=== PATIENT | male | born 1975 | race Native Hawaiian/Other Pacific Islander ===

== ENCOUNTER 2017-03-15 08:45 | Emergency (ER) | payer OTHER ==
[2017-03-15 08:53] VITALS: BMI 24.2
[2017-03-15 08:56] VITALS: BP 142/93; PULSE 90; RESP 19; TEMP 98.5; O2SAT 98
--- NOTE | 2017-03-15 09:29 | ED PDOC ---
Lower Extremity Pain/Injury Time Seen by Provider: 03/15/17 09:19 Chief Complaint (Nursing): Lower Extremity Problem/Injury Chief Complaint (Provider): Laceration History Per: Patient History/Exam Limitations: no limitations Onset/Duration Of Symptoms: Days (Today) Current Symptoms Are (Timing): Still Present Additional Complaint(s): Pt. was walking and a wooden ornament cut his leg open. No numbness, tingles, weakness. Has pain to the laceration site. No calf pain. Walking with no issues. Tetnus utd. Past Medical History Reviewed: Nursing Documentation, Vital Signs Vital Signs: Last Vital Signs Temp 98.5 F 03/15/17 08:53 Pulse 90 03/15/17 08:53 Resp 19 03/15/17 08:53 BP 142/93 H 03/15/17 08:53 Pulse Ox 98 03/15/17 08:59 - Medical History PMH: No Chronic Diseases - Surgical History Surgical History: No Surg Hx - Family History Family History: States: Unknown Family Hx - Home Medications Home Medications: Ambulatory Orders Medication Instructions Recorded Ibuprofen [Motrin] 600 mg PO TID 7 Days 03/15/17 - Allergies Allergies/Adverse Reactions: Allergies Allergy/AdvReac Type Severity Reaction Status Date / Time No Known Allergies Allergy Verified 03/15/17 09:26 Review of Systems Constitutional: Negative for: Weakness Cardiovascular: Negative for: Chest Pain Respiratory: Negative for: Cough, Shortness of Breath Musculoskeletal: Positive for: Leg Pain. Negative for: Neck Pain, Shoulder Pain , Arm Pain, Back Pain, Hand Pain Skin: Negative for: Rash Neurological: Negative for: Weakness, Numbness Physical Exam - Reviewed Nursing Documentation Reviewed: Yes Vital Signs Reviewed: Yes - Physical Exam Appears: Positive for: Well, Non-toxic, No Acute Distress Head Exam: Positive for: ATRAUMATIC, NORMAL INSPECTION, NORMOCEPHALIC Neck: Positive for: Normal, Painless ROM, Supple Cardiovascular/Chest: Positive for: Regular Rate, Rhythm Respiratory: Positive for: CNT, Normal Breath Sounds Pulses-Dorsalis Pedis (R): 2+ Back: Positive for: Normal Inspection. Negative for: L CVA Tenderness, R CVA Tenderness Extremity: Positive for: Normal ROM, Tenderness (R penaloza mid with laceration vertical, linear; no bone deformity; 3cm length.). Negative for: Pedal Edema, Calf Tenderness Neurologic/Psych: Positive for: Alert, Oriented - ECG O2 Sat by Pulse Oximetry: 98 - Progress ED Course And Treament: 1053: Stable. AAOx3. Pain free. Ambulated with no issues. Fu with pcp. Procedures - Laceration/Wound Repair leg Wound Length (cm): 3 Wound's Depth, Shape: superficial, linear Wound Explored: no foreign body removed Irrigated w/ Saline (ccs): 350 Betadine Prep?: Yes Anesthesia: Lidocaine w/ Epi (2%) Volume Anesthetic (ccs): 2 Wound Repaired With: Sutures Suture Size/Type: 3:0, proline Number of Sutures: 8 Layer Closure?: No Wound Complexity: Simple Sterile Dressing Applied?: Yes Progress: Tolerated procedure with no issues. Aware of scarring. Aware of wound care. Disposition - Clinical Impression Clinical Impression: Laceration - Patient ED Disposition Is Patient to be Admitted: No Counseled Patient/Family Regarding: Diagnosis, Need For Followup, Rx Given - Disposition Referrals: [facility] [Outside] - 03/16/17 Disposition: Routine/Home Disposition Time: 10:56 Condition: STABLE Additional Instructions: Return in 7 days or see your doctor in 7 days for suture removal. Prescriptions: Ibuprofen [Motrin] 600 mg PO TID 7 Days Instructions: Laceration (ED), Care For Your Stitches (ED)
[2017-03-15] MEDS ORDERED: Lidocaine 2% w Epi 1:100,000 Inj IJ ONE (09:39)
[2017-03-15] MEDS ORDERED: Lidocaine/Epi 1% 1:100000 20 ML IJ ONE (09:39)
[2017-03-15] MEDS ORDERED: Povidone Iodine Topical 10% Sol ONE (09:41)
== END 2017-03-15 11:24 | disposition home or self-care (01) ==
LOC: H.ER 08:45
DX: S81.811A Laceration without foreign body, right lower leg, initial encounter (principal); W22.8XXA Striking against or struck by other objects, initial encounter; Y92.89 Other specified places as the place of occurrence of the external cause

== ENCOUNTER 2017-03-22 20:12 | Emergency (ER) | payer SELFPAY ==
[2017-03-22 20:13] VITALS: BMI 24.2
[2017-03-22 20:26] VITALS: PULSE 97; RESP 16; TEMP 98.2; O2SAT 99
--- NOTE | 2017-03-22 21:07 | ED PDOC ---
HPI: Wound Care - HPI Time Seen by Provider: 03/22/17 20:12 Chief Complaint (Nursing): Suture/Staple Removal Chief Complaint (Provider): Suture/Staple Removal History Per: Patient Exam Limitations: no limitations Current Symptoms Are (Timing): Better Additional Complaint(s): 41 y/o male presents to the emergency department for removal of stitches that were placed on 03/15/2017. Denies any further medical complaints. Past Medical History Reviewed: Historical Data, Nursing Documentation, Vital Signs Vital Signs: Last Vital Signs Temp 98.2 F 03/22/17 20:24 Pulse 97 H 03/22/17 20:24 Resp 16 03/22/17 20:24 BP Pulse Ox 99 03/22/17 20:24 - Medical History PMH: No Chronic Diseases - Family History Family History: States: Unknown Family Hx - Home Medications Home Medications: Ambulatory Orders Medication Instructions Recorded Ibuprofen [Motrin] 600 mg PO TID 7 Days 03/15/17 Cephalexin [Keflex] 500 mg PO QID #28 capsule 03/22/17 - Allergies Allergies/Adverse Reactions: Allergies Allergy/AdvReac Type Severity Reaction Status Date / Time No Known Allergies Allergy Verified 03/22/17 21:04 Review of Systems ROS Statement: Except As Marked, All Systems Reviewed And Found Negative Skin: Positive for: Other (Healed laceration with stitches on the right lower leg ) Physical Exam - Reviewed Nursing Documentation Reviewed: Yes Vital Signs Reviewed: Yes - Physical Exam Appears: Positive for: Non-toxic, No Acute Distress Head Exam: Positive for: ATRAUMATIC, NORMAL INSPECTION, NORMOCEPHALIC Skin: Positive for: Normal Color, Warm, Dry Extremity: Positive for: Other (removal of 8 stitches on the right leg.) Neurologic/Psych: Positive for: Alert, Oriented - ECG O2 Sat by Pulse Oximetry: 99 (RA) Pulse Ox Interpretation: Normal Medical Decision Making Medical Decision Making: Time: 20:12 Initial Impression: Wound Check Initial Plan: --Cleaned with betadine and normal saline. --Removal of 8 sutures. --Application of 10 steri strips. Time: 21:23 Patient is medically stable, and requires no further treatment in the ED at this time. Patient will be discharged home with Rx for Keflex 500 mg. Counseling was provided and all questions were answered regarding diagnosis and need for follow up with referred clinics. There is agreement to discharge plan. Return if symptoms persist or worsen. Clinical Impression: removal of suture Scribe Attestation: Documented by Sheyla Guaman, acting as a scribe for Luis Morris PA-C. Provider Scribe Attestation: All medical record entries made by the Scribe were at my direction and personally dictated by me. I have reviewed the chart and agree that the record accurately reflects my personal performance of the history, physical exam, medical decision making, and the department course for this patient. I have also personally directed, reviewed, and agree with the discharge instructions and disposition. Disposition - Clinical Impression Clinical Impression: Removal of suture - Disposition Referrals: [facility] [Outside] Disposition: Routine/Home Disposition Time: 21:23 Additional Instructions: f/u with clinic or ED for repeat evaluation of wound in 2-3 days. Prescriptions: Cephalexin [Keflex] 500 mg PO QID #28 capsule Instructions: Stitches Removal (ED), Cellulitis (ED)
[2017-03-22 21:53] VITALS: BP 134/77
== END 2017-03-22 21:52 | disposition home or self-care (01) ==
LOC: H.ER 20:12
DX: Z48.02 Encounter for removal of sutures (principal)